=== PATIENT | female | born 1990 | race Hispanic/Latino ===

== ENCOUNTER 2019-09-02 05:30 | Inpatient (IN) | payer BC, MEDICAID ==
[2019-09-02 09:31] VITALS: BMI 31.3
[2019-09-02] MEDS ORDERED: Butorphanol Tartrate 1 MG/ML VIAL SLOW IVP PRN (10:23)
[2019-09-02] MEDS ORDERED: Ondansetron PF 4 MG/2 ML Vial IVP PRN ×2 (10:23→23:08)
[2019-09-02] MEDS ORDERED: Ibuprofen 800 MG TAB PO PRN (10:23)
[2019-09-02] MEDS ORDERED: Lidocaine 1% (PF) 30 ML VIAL SC PRN (10:23)
[2019-09-02] MEDS ORDERED: Misoprostol 200 MCG TAB PR PRN (10:23)
[2019-09-02] MEDS ORDERED: HYDROcodone/Acetaminophen 5/325 mg Tablet PO PRN ×2 (10:23→23:08)
[2019-09-02] MEDS ORDERED: hydrALAZINE 20 MG/ML VIAL SLOW IVP PRN ×2 (10:23→23:08)
[2019-09-02] MEDS ORDERED: Methylergonovine 0.2 MG/ML VIAL IM PRN ×2 (10:23→23:08)
[2019-09-02] MEDS ORDERED: NS w/ Oxytocin 10 units 500 ML IV SCH ×2 (10:23→11:15)
[2019-09-02] MEDS ORDERED: NS / Oxytocin 40 units/1000ml 1,000 ML IV PRN (10:23)
[2019-09-02] MEDS ORDERED: Acetaminophen 500 MG TAB PO PRN (10:23)
[2019-09-02] MEDS ORDERED: Promethazine HCl 25 MG/ML VIAL IM PRN (10:23)
[2019-09-02] MEDS ORDERED: Diphenoxylate HCl/Atropine Tablet PO PRN (10:23)
[2019-09-02] MEDS ORDERED: Carboprost 250 MCG/ML AMP IM PRN (10:23)
[2019-09-02] MEDS ORDERED: Lactated Ringer's 1,000 ML IV SCH (10:23)
[2019-09-02 10:40] LABS: Hemoglobin 12.9 g/dL (12.0-16.0); Mean Corpuscular Hemoglobin 31.4 pg (27.0-31.0); Mean Corpuscular Volume 89.8 fL (78.0-98.0); Mean Platelet Volume 8.5 fL (7.4-10.4); Platelet Count 239 thou/uL (130-400); RBC Distribution Width 12.5 % (11.5-14.5); Red Blood Cell (RBC) Count 4.12 mill/uL (4.20-5.40); White Blood Cell (WBC) Count 11.4 thou/uL (4.8-10.8)
[2019-09-02 11:27] LABS: HIV (1/2) Antibody/Antigen Non-Reactive (NonReactive); HIV 1/2 INDEX 0.05 S/CO (<1.00); Hep B Surf Ag Non-Reactive S/CO (NonReactive)
[2019-09-02 11:28] LABS: Syphilis Antibody Nonreactive (Nonreactive); Syphilis Antibody Index 0.05 S/CO (<1.00 Non-Reactive)
--- NOTE | 2019-09-02 13:44 | PDOC.LDHP ---
Labor and Delivery H&P Chief complaint: contractions HPI: 29 yo @ 40w1d by LMP c/w 9 week sono who presents with c/o lower abdominal pain found in latent labor. She was scheduled for IOL today. Pt has h/o PPH, with normal labs. Pt had trichomonas treated in , neg HÉCTOR Current gestational age (weeks): 40 Due date: 09/01/19 Dating criteria: last menstrual period Grav: 5 Para: 4 OB History Details: 4 term SVDs Current complications: none Abnormal US findings: No Past Medical History: Denies Current medications: pre- vitamins Previous surgical history: none Allergies/Adverse Reactions: Allergies Allergy/AdvReac Type Severity Reaction Status Date / Time No Known Allergies Allergy Unverified 09/02/19 09:57 Social history: none - Physical Exam Vital signs reviewed and normal: yes General: NAD Heart: RRR Lungs: nonlabored breathing Abdomen: gravid Extremeties: no edema FHT: category 1 [place] contractions every: q3min - Vaginal Exam cm dilated: 4 (cephalic, AROM clear ) Effacement: 50% Station: -2 - OB Labs Blood type: O RH: positive Antibody Screen: negative HIV: negative RPR: negative HEPSAg: negative 1 hour GCT: positive 3 hour GTT: wnl GBS: negative Urine drug screen: positive Rubella: immune Additional Labs: + Trich (neg HÉCTOR) - Assessment 40w1d IUP Latent labor H/O PPH + Trich, neg HÉCTOR - Plan Plan: admit to L&D, informed consent obtained, anesthesia consult for pain management -: Dilapans removed, AROM and on pitocin.
--- NOTE | 2019-09-02 17:22 | PDOC.LDPN ---
Labor & Delivery Progress Note - Subjective Subjective: vaginal pressure - Objective Vital signs reviewed and normal: yes General: NAD Uterine fundus: non tender Dilation: 6 Effacement: 50% Station: -2 FHT: category 1 (140s, mod [place], +accels, no decels ) [place] contractions every: q2-3 min - Assessment (1) 40 weeks gestation of Code(s): Z3A.40 - 40 WEEKS GESTATION OF Current Visit: Yes Status : Acute Plan: continue plan of care, pitocin for augmentation
[2019-09-02] MEDS ORDERED: NS / Oxytocin 40 units/1000ml 1,000 ML ONE (20:37)
[2019-09-02] MEDS ORDERED: Misoprostol 200 MCG TAB ONE (20:37)
[2019-09-02] MEDS ORDERED: Methylergonovine 0.2 MG/ML VIAL ONE (20:37)
[2019-09-02] MEDS ORDERED: Carboprost 250 MCG/ML AMP ONE (20:37)
--- NOTE | 2019-09-02 21:23 | PDOC.OPDEL ---
OB Operative/Delivery Note Delivery Dr/Surgeon: Cass Dillard DO Pre-Delivery Diagnosis: active labor Procedure/Post Delivery Dx: spontaneous vaginal delivery Weeks gestation: 40 Anesthesia: epidural - Findings A Sex: male - 1 min: 8 - 5 min: 9 - Additional Findings/Plan Placenta delivered: spontaneous Repaired Obstetrical Laceration: none Estimated blood loss: QBL 50 cc Compilations/Other Findings: in [place]AT[place] position Normal appearing placenta. Post delivery plan: routine recovery
[2019-09-02] MEDS ORDERED: Benzocaine-Menthol 82.5 ML CAN TOP PRN (23:08)
[2019-09-02] MEDS ORDERED: Milk Of Magnesia 30 ML UDCUP PO PRN (23:08)
[2019-09-02] MEDS ORDERED: Bisacodyl 10 MG SUPP PR PRN (23:08)
[2019-09-02] MEDS ORDERED: Misoprostol 200 MCG TAB VAG PRN (23:08)
[2019-09-02] MEDS ORDERED: NS / Oxytocin 40 units/1000ml 1,000 ML IV SCH (23:08)
[2019-09-02] MEDS ORDERED: Lanolin Ointment 7 GM TUBE TOP PRN (23:08)
[2019-09-02] MEDS ORDERED: diphenhydrAMINE 25 MG CAP PO PRN (23:08)
[2019-09-02] MEDS ORDERED: Ibuprofen 800 MG TAB PO SCH (23:30)
[2019-09-03 05:41] LABS: Hemoglobin 10.8 g/dL (12.0-16.0); Mean Corpuscular HGB CONC 34.2 g/dL (32.0-36.0); Mean Corpuscular Hemoglobin 30.8 pg (27.0-31.0); Mean Corpuscular Volume 90.1 fL (78.0-98.0); Mean Platelet Volume 8.2 fL (7.4-10.4); Platelet Count 209 thou/uL (130-400); RBC Distribution Width 12.4 % (11.5-14.5); Red Blood Cell (RBC) Count 3.51 mill/uL (4.20-5.40); White Blood Cell (WBC) Count 20.9 thou/uL (4.8-10.8)
[2019-09-03] MEDS ORDERED: Ibuprofen 800 MG TAB PO SCH (06:00)
--- NOTE | 2019-09-03 07:58 | PDOC.PP ---
Post Progress Note Post Day #: 1 Subjective: No concerns. Minimal pain and lochia. Breast feeding. PO intake tolerated: yes Flatus: yes Ambulation: yes Vital Signs (12 hours) Temp Pulse Resp BP Pulse Ox 09/03/19 04:00 98 F 74 16 92/55 L 95 09/03/19 00:30 97.9 F 75 16 113/56 L 99 09/02/19 23:30 97.7 F 63 16 117/64 99 Weight Weight 200 lb - Physical Examination General: NAD Cardiovascular: RRR Respiratory: non-labored breathing Abdominal: no distention, appropriately TTP Fundus firm & at: below umbilicus Extremities: negative homans (B) Neurological: no gross focal deficits Psychiatric: A&Ox3, normal affect Result Diagrams: 09/03/19 05:20 Additional Labs: Post Labs Blood Type O POSITIVE 09/02/19 10:51 Hep Bs Antigen Non-Reactive S/CO (NonReactive) 09/02/19 10:26 (1) 40 weeks gestation of Code(s): Z3A.40 - 40 WEEKS GESTATION OF Status: Acute (2) Vaginal delivery Code(s): O80 - ENCOUNTER FOR FULL-TERM UNCOMPLICATED DELIVERY Status: Acute (3) Anemia Code(s): D64.9 - ANEMIA, UNSPECIFIED Status: Acute Qualifiers: Anemia type: iron deficiency - Assessment/Plan PPD1 VSSAF Fe supplement Continue PP care Plan for d/c tomorrow
[2019-09-03] MEDS: Ibuprofen 800 MG TAB PO SCH ×2 (09:01→15:02)
[2019-09-03] MEDS: Prenatal Vitamin 1 TAB PO SCH (09:01)
[2019-09-03] MEDS: Docusate Calcium (SURFAK) 240 MG CAP PO SCH ×2 (09:02→22:10)
[2019-09-04] MEDS: Ibuprofen 800 MG TAB PO SCH ×2 (00:08→09:41)
--- NOTE | 2019-09-04 08:02 | PDOC.PP ---
Post Progress Note Post Day #: 2 Subjective: No concerns. Minimal bleeding and pain. Breast feeding. PO intake tolerated: yes Flatus: yes Ambulation: yes Vital Signs (12 hours) Temp Pulse Resp BP Pulse Ox 09/04/19 04:00 97.9 F 69 16 103/62 96 09/04/19 00:00 97.9 F 78 16 100/55 L 95 Weight Weight 200 lb - Physical Examination General: NAD Cardiovascular: RRR Respiratory: non-labored breathing Abdominal: no distention, appropriately TTP Fundus firm & at: below umbiliucs Extremities: negative homans (B) Neurological: no gross focal deficits Psychiatric: A&Ox3, normal affect Result Diagrams: 09/03/19 05:20 Additional Labs: Post Labs Blood Type O POSITIVE 09/02/19 10:51 Hep Bs Antigen Non-Reactive S/CO (NonReactive) 09/02/19 10:26 (1) 40 weeks gestation of Code(s): Z3A.40 - 40 WEEKS GESTATION OF Status: Resolved (2) Vaginal delivery Code(s): O80 - ENCOUNTER FOR FULL-TERM UNCOMPLICATED DELIVERY Status: Acute (3) Anemia Code(s): D64.9 - ANEMIA, UNSPECIFIED Status: Acute Qualifiers: Anemia type: iron deficiency - Assessment/Plan PPD2 VSSAF D/C home today.
[2019-09-04] MEDS: Prenatal Vitamin 1 TAB PO SCH (09:42)
[2019-09-04] MEDS: Docusate Calcium (SURFAK) 240 MG CAP PO SCH (09:42)
[2019-09-04 11:54] VITALS: BP 111/59; TEMP 98.2
== END 2019-09-04 13:20 | disposition home or self-care (01) | DRG 807 ==
LOC: L&D 08:39 → 3SE 23:39
PROVIDERS: ADMIT Obstetrics & Gynecology; ATTEND Obstetrics & Gynecology
PROC: 10E0XZZ Delivery of Products of Conception, External Approach (ICD-10-PCS; principal; 2019-09-02)
DX: O99.02 Anemia complicating childbirth (principal); Z37.0 Single live birth; Z3A.40 40 weeks gestation of pregnancy; D50.9 Iron deficiency anemia, unspecified
CPT/HCPCS: 36415; 85027; 86780; 86850; 86900; 86901; 87340; 87389; J2210; J2590; J3490

== ENCOUNTER 2020-10-22 00:52 | Inpatient (IN) | payer BC, MEDICAID, OTHER, SELFPAY ==
[2020-10-22 01:22] VITALS: BMI 32.4
[2020-10-22] MEDS ORDERED: hydrALAZINE 20 MG/ML VIAL SLOW IVP PRN ×2 (01:58→16:15)
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
[2020-10-22] MEDS ORDERED: Ibuprofen 800 MG TAB PO PRN (04:48)
[2020-10-22] MEDS ORDERED: Misoprostol 200 MCG TAB PR PRN (04:48)
[2020-10-22] MEDS ORDERED: Lidocaine 1% (PF) 30 ML VIAL SC PRN (04:48)
[2020-10-22] MEDS ORDERED: NS / Oxytocin 40 units/1000ml 1,000 ML IV PRN (04:48)
[2020-10-22] MEDS ORDERED: Diphenoxylate HCl/Atropine Tablet PO PRN (04:48)
[2020-10-22] MEDS ORDERED: Promethazine HCl 25 MG/ML VIAL IM PRN ×2 (04:48→08:58)
[2020-10-22] MEDS ORDERED: Methylergonovine 0.2 MG/ML VIAL IM PRN ×2 (04:48→16:15)
[2020-10-22] MEDS ORDERED: Ondansetron PF 4 MG/2 ML Vial IVP PRN ×3 (04:48→16:15)
[2020-10-22] MEDS ORDERED: Carboprost 250 MCG/ML AMP IM PRN (04:48)
--- NOTE | 2020-10-22 05:11 | PDOC.LDPN ---
Labor & Delivery Progress Note - Subjective Subjective: other (feeling contractions) - Objective Vital signs reviewed and normal: yes General: NAD Uterine fundus: non tender SVE: 50/-2 @ 4:00 AM FHT: category 1 Plan: other -: Pt will be admitted due to SROM in bed Continue expectant management of current labor
[2020-10-22 05:28] LABS: Hemoglobin 10.7 g/dL (12.0-16.0); Mean Corpuscular HGB CONC 33.4 g/dL (32.0-36.0); Mean Corpuscular Hemoglobin 28.8 pg (27.0-31.0); Mean Corpuscular Volume 86.2 fL (78.0-98.0); Mean Platelet Volume 9.1 fL (7.4-10.4); Platelet Count 217 thou/uL (130-400); RBC Distribution Width 12.5 % (11.5-14.5); Red Blood Cell (RBC) Count 3.71 mill/uL (4.20-5.40); White Blood Cell (WBC) Count 14.7 thou/uL (4.8-10.8)
[2020-10-22 06:08] LABS: HBSAg Index 0.17 S/CO (0-0.99); Hep B Surf Ag Non-Reactive S/CO (NonReactive)
[2020-10-22 06:14] LABS: Syphilis Antibody Nonreactive (Nonreactive); Syphilis Antibody Index 0.05 S/CO (<1.00 Non-Reactive)
--- NOTE | 2020-10-22 06:35 | PDOC.LDPN ---
Labor & Delivery Progress Note - Subjective Subjective: painful contractions - Objective Vital signs reviewed and normal: yes General: breathing through contractions Uterine fundus: non tender SVE: 5/50/-2 FHT: category 1 [place] contractions every: q3 min -: A/P: 1) IUP@ 39.2 weeks with SROM progressing spontaneously in labor Cat 1 FHTs Continue expectant management
[2020-10-22] MEDS ORDERED: Fentanyl 4 mcg/Bup 0.1% Cadd 100 ML ONE (07:36)
[2020-10-22] MEDS: Lactated Ringer's 1,000 ML IV SCH ×2 (07:55→09:28)
[2020-10-22] MEDS ORDERED: diphenhydrAMINE 50 MG/ML VIAL IVP PRN (08:58)
[2020-10-22] MEDS ORDERED: ePHEDrine 50 MG/ML VIAL SLOW IVP PRN (08:58)
[2020-10-22] MEDS ORDERED: Naloxone HCl 0.4 mg/ml Vial IVP PRN ×2 (08:58)
[2020-10-22] MEDS ORDERED: Lactated Ringer's 500 ML IV PRN (08:58)
[2020-10-22] MEDS ORDERED: Acetaminophen 325 MG TAB PO PRN (08:58)
[2020-10-22] MEDS ORDERED: Fentanyl 4 mcg/Bupivacaine 0.1% Cassette 100 ML EPIDURAL SCH (09:00)
[2020-10-22] MEDS ORDERED: Communication Order-Pharmacy FS SCH (09:00)
[2020-10-22] MEDS ORDERED: Bupivacaine HCl 0.25%/Epi 0.0005/PF 10 ML VIAL FS ONE (09:10)
--- NOTE | 2020-10-22 09:19 | PDOC.BPN ---
- Brief Progress Note Encounter Date: 10/22/20 Encounter Time: 09:00 bedside sono to check presentation. Cephalic. OP position. epidural in place.
--- NOTE | 2020-10-22 10:01 | PDOC.LDPN ---
Labor & Delivery Progress Note - Subjective Subjective: comfortable, no concerns - Objective Vital signs reviewed and normal: yes General: NAD Dilation: 5/60/-3 Station: -3 FHT: category 2, variability present (minimal) [place] contractions every: 4 min IUPC placed: yes FSE placed: yes Resuscitative measures: maternal IV fluids, maternal position change Plan: continue plan of care, resuscitative measures -: internal monitors placed. Variability appears improved. ok w/ starting D5 if lates recur.
[2020-10-22] MEDS ORDERED: NS w/ Oxytocin 30 units 500 ML ONE ×2 (11:33→14:54)
--- NOTE | 2020-10-22 12:49 | PDOC.LDPN ---
Labor & Delivery Progress Note - Subjective Subjective: comfortable - Objective Abnormal vital signs: Severe BP of 162/83 noted with return to normal on next check General: NAD Dilation: 8 Effacement: 90% Station: 0 FHT: category 2 [place] contractions every: 2-3 IUPC placed: yes FSE placed: yes -: 1) IUP@ 39.2 weeks with SROM progressing spontaneously in labor [place] running 8/80/0 1 severe range BP noted with return to normotensive pressure, will monitor FHT: Cat 2, tachycardia with baseline of 165, will monitor for resolution and intervene if needed Epidural in place
--- NOTE | 2020-10-22 13:40 | PDOC.LDPN ---
Labor & Delivery Progress Note - Subjective Subjective: comfortable - Objective Vital signs reviewed and normal: yes Abnormal vital signs: Temp of 100.3 noted, will monitor General: NAD Dilation: 9 Effacement: 90% Station: 0 FHT: category 2 [place] contractions every: 2 -: 1) IUP@ 39.2 weeks with SROM progressing spontaneously in labor Pit running /0 tachycardia with baseline of 180, maternal temp of 100.3, will monitor Epidural in place
--- NOTE | 2020-10-22 14:47 | PDOC.OPDEL ---
OB Operative/Delivery Note Delivery Dr/Surgeon: Teresa/Yonatan Pre-Delivery Diagnosis: active labor Procedure/Post Delivery Dx: spontaneous vaginal delivery Anesthesia: epidural - Findings A Sex: male - 1 min: 7 - 5 min: 9 - Additional Findings/Plan Placenta delivered: spontaneous Repaired Obstetrical Laceration: none Compilations/Other Findings: Delivering Physician: Teresa Attending: Yonatan Procedure: Spontaneous Vaginal Delivery Anesthesia: epidural QBL: 75ml Pre-op Diagnosis: 1. Term intrauterine in labor 2. Hx of PPH Post-op Diagnosis: 1. Term intrauterine , delivered 2. same as above Indications: A 30y/o female presents in active labor Delivery Note: This is 30yo F @ 39.2 wks who delivered a viable M infant at 1419. Following an antepartum course complicated by tachycardia, a vigorous M was delivered over an intact perineum in the OA position. Anterior Shoulder and then remainder of the body delivered. No nuchal cord. The head was held down and mouth and nares were bulb suctioned. Cord clamped and cut and cord blood collected. Placenta delivered intact in the [place] position with a 3 vessel cord noted. Fundal massage was performed and the fundus was firm. The cervix and vagina were inspected and found to be free of lacerations. Infant went to nursery in good condition for routine care. Apgars were 7/9 at 1 & 5 minutes, respectively. Patient tolerated delivery well and went to after routine recovery/care. Addendum - Attending - Attending Attestation Date/Time: 10/22/20 2642 I was present and supervised the of a viable male infant over an intact perineum to this 30 yo @39.2 weeks. No nuchal cord. Shoulders and body delivered easily. Placenta delivered spontaneously and intact. 3V cord. No epis or lacerations. QBL=75 mL. Infant and mother in stable condition. Residents: Dipesh/Jaciel.
[2020-10-22] MEDS: Ampicillin 2 GM in Sodium Chloride 0.9% 100 ML IVPB SCH ×2 (16:09→23:44)
[2020-10-22] MEDS ORDERED: Adacel (T-DAP) 0.5 ML SYRINGE IM ONE (16:15)
[2020-10-22] MEDS ORDERED: Milk Of Magnesia 30 ML UDCUP PO PRN (16:15)
[2020-10-22] MEDS ORDERED: Preparation H Ointment 28 GM TUBE PR PRN (16:15)
[2020-10-22] MEDS ORDERED: Bisacodyl 10 MG SUPP PR PRN (16:15)
[2020-10-22] MEDS ORDERED: diphenhydrAMINE 25 MG CAP PO PRN (16:15)
[2020-10-22] MEDS ORDERED: Lanolin Ointment 7 GM TUBE TOP PRN (16:15)
[2020-10-22] MEDS ORDERED: Misoprostol 200 MCG TAB VAG PRN (16:15)
[2020-10-22] MEDS ORDERED: Benzocaine-Menthol 82.5 ML CAN TOP PRN (16:15)
[2020-10-22] MEDS: Gentamicin 360 MG in Sodium Chloride 0.9% 100 ML IVPB SCH (16:47)
[2020-10-22] MEDS ORDERED: NS w/ Oxytocin 30 units 500 ML IVPB SCH (17:30)
[2020-10-22] MEDS: Ferrous Sulfate 325 MG TAB PO SCH (17:52)
[2020-10-22 17:55] LABS: SARS-CoV-2 PCR by NAA Not Detected (NotDetected)
[2020-10-22] MEDS: Ibuprofen 800 MG TAB PO SCH (23:46)
[2020-10-22] MEDS: Docusate Calcium (SURFAK) 240 MG CAP PO SCH (23:46)
--- NOTE | 2020-10-23 03:52 | PDOC.PP ---
Post Progress Note Post Day #: 1 Subjective: Feeling well, pain well controlled w/ ibuprofen. PO intake tolerated: yes Flatus: yes Ambulation: yes Vital Signs (12 hours) Temp Pulse Resp BP 10/22/20 23:53 98.1 F 70 12 117/70 10/22/20 20:00 98.1 F 83 12 101/62 10/22/20 18:41 98.0 F 84 18 106/58 L 10/22/20 17:42 97.5 F L 80 18 115/61 Weight Weight 91.172 kg - Physical Examination General: NAD Cardiovascular: no m/r/g, RRR Respiratory: clear to auscultation bilaterally, non-labored breathing Abdominal: lochia (downtrending), no distention, appropriately TTP Fundus firm & at: level of umbilicus Neurological: no gross focal deficits Psychiatric: A&Ox3, normal affect Result Diagrams: 10/23/20 06:05 Additional Labs: Post Labs Hep Bs Antigen Non-Reactive S/CO (NonReactive) 10/22/20 05:19 Blood Type O POSITIVE 10/22/20 05:19 - Assessment/Plan 30 yo G6 now P6005 delivered at 39.2 wga PPD#1 s/p - hemagram pending - meeting milestones IAI - temp 102.2, amp and gent started - continue for 24 hours - goal to be afebrile for 24 hours prior to d/c Grand multip Hx of delayed PPH 2 weeks after delivery - monitor lochia - total QBL wnl Dispo: monitor today. If all goes well, perhaps a late evening discharge; otherwise, plan for home tomorrow. Fozia Grissom MD PGY2 Addendum - Attending - Attending Attestation Date/Time: 10/23/20 2568 I personally evaluated the patient and discussed the management with Dr. Grissom I agree with the History, Examination, Assessment and Plan documented above with any addition or exceptions noted below - Patient without complaints. Ambulating/voiding. Afebrile VSS A/P: 1) PPD #1 s/p - doing well; continue routine care. 2) IAI - no further fever since immediately . D/c abx at 24 hours post delivery. Possible d/c later today versus tomorrow
[2020-10-23] MEDS: Ampicillin 2 GM in Sodium Chloride 0.9% 100 ML IVPB SCH ×4 (05:03→21:35)
[2020-10-23] MEDS: Ibuprofen 800 MG TAB PO SCH ×3 (05:04→21:35)
[2020-10-23 06:20] LABS: Hemoglobin 8.9 g/dL (12.0-16.0); Mean Corpuscular HGB CONC 33.2 g/dL (32.0-36.0); Mean Corpuscular Volume 87.6 fL (78.0-98.0); Mean Platelet Volume 8.9 fL (7.4-10.4); Platelet Count 145 thou/uL (130-400); RBC Distribution Width 12.9 % (11.5-14.5); Red Blood Cell (RBC) Count 3.08 mill/uL (4.20-5.40); White Blood Cell (WBC) Count 25.1 thou/uL (4.8-10.8)
[2020-10-23] MEDS: Ferrous Sulfate 325 MG TAB PO SCH ×2 (09:14→17:38)
[2020-10-23] MEDS: Docusate Calcium (SURFAK) 240 MG CAP PO SCH ×2 (09:14→21:34)
[2020-10-23] MEDS: Prenatal Vitamin 1 TAB PO SCH (09:14)
[2020-10-23] MEDS ORDERED: Sodium Chloride 0.9% 10 ML ONE (16:29)
[2020-10-23] MEDS: Gentamicin 360 MG in Sodium Chloride 0.9% 100 ML IVPB SCH (17:38)
[2020-10-24] MEDS: Ampicillin 2 GM in Sodium Chloride 0.9% 100 ML IVPB SCH (04:31)
[2020-10-24] MEDS: Ibuprofen 800 MG TAB PO SCH (06:02)
--- NOTE | 2020-10-24 07:50 | PDOC.PP ---
Post Progress Note Post Day #: 2 Subjective: doing well no complaints, no fever/chills PO intake tolerated: yes Flatus: yes Ambulation: yes Vital Signs (12 hours) Temp Pulse Resp BP BP Pulse Ox 10/24/20 04:30 98.6 F 60 20 121/75 99 10/24/20 00:00 97.7 F 60 20 119/71 98 10/23/20 19:55 98 F 72 20 117/74 97 Weight Weight 91.172 kg - Physical Examination General: NAD Cardiovascular: no m/r/g, RRR Respiratory: clear to auscultation bilaterally, non-labored breathing Abdominal: + bowel sounds, no distention Skin: no rash Neurological: no gross focal deficits Psychiatric: A&Ox3, normal affect Result Diagrams: 10/23/20 06:05 Additional Labs: Post Labs Hep Bs Antigen Non-Reactive S/CO (NonReactive) 10/22/20 05:19 Blood Type O POSITIVE 10/22/20 05:19 - Assessment/Plan 30 yo G6 now P6005 delivered at 39.2 wga PPD#2 s/p stable for DC IAI - temp 102.2, s/p 24hrs amp and gent. - afebrile for > 24 hours - ready for DC Grand multip Hx of delayed PPH 2 weeks after delivery - monitor lochia - total QBL wnl Dispo: DC today Addendum - Attending - Attending Attestation Date/Time: 10/24/20 0912 I personally evaluated the patient and discussed the management with Dr. Martinez I agree with the History, Examination, Assessment and Plan documented above with any addition or exceptions noted below - Patient without complaints. Afebrile VSS. A/P: 1) PPD#2 s/p - doing well. Plan to d/c home today.
[2020-10-24 08:16] VITALS: BP 116/68; TEMP 97.7
[2020-10-24] MEDS: Prenatal Vitamin 1 TAB PO SCH (08:56)
[2020-10-24] MEDS: Ferrous Sulfate 325 MG TAB PO SCH (08:56)
[2020-10-24] MEDS: Docusate Calcium (SURFAK) 240 MG CAP PO SCH (08:56)
== END 2020-10-24 10:40 | disposition home or self-care (01) | DRG 807 ==
LOC: L&D/OP 00:52 → L&D-LIB 05:05 → 3SW 18:00
PROVIDERS: ADMIT Family Medicine; ATTEND Family Medicine
PROC: 10E0XZZ Delivery of Products of Conception, External Approach (ICD-10-PCS; principal; 2020-10-22)
DX: O80 Encounter for full-term uncomplicated delivery (principal); Z37.0 Single live birth; Z3A.39 39 weeks gestation of pregnancy; Z20.822 Contact with and (suspected) exposure to COVID-19
CPT/HCPCS: 36415; 36416; 51702; 85027; 86780; 86850; 86900; 86901; 87340; 87635; 88307; 99285; J0290; J1580; J2590; J3490; U0003; U0005